=== PATIENT | female | born 1990 | race African-American/Black ===

== ENCOUNTER 2019-12-02 05:47 | Emergency (ER) | payer OTHER ==
[~2019-12-02] VITALS: Ht 167.6 cm; Wt 61.0 kg
[2019-12-02 06:53] VITALS: BP 119/89
== END 2019-12-02 06:53 | disposition home or self-care (01) ==
LOC: ER 05:47
DX: K12.2 Cellulitis and abscess of mouth (principal); J02.9 Acute pharyngitis, unspecified
CPT/HCPCS: 99283